=== PATIENT | male | born 1945 | race Caucasian/White ===

== ENCOUNTER 2022-09-30 13:12 | Emergency (ER) | payer MEDICARE, BC ==
[~2022-09-30] VITALS: Ht 182.9 cm; Wt 76.2 kg
[2022-09-30] MEDS ORDERED: IV NORMAL SALINE 500 ML BAG IV ONE ×2 (13:45→16:15)
--- NOTE | 2022-09-30 14:15 | NUR ---
Ice pack to lower back on. Position changes done.
[2022-09-30 14:34] LABS: HEMATOCRIT 37.2 % (36.7-47.1); MEAN CORPUSCULAR HEMOGLOBIN 29.3 uug (23.8-33.4); MEAN CORPUSCULAR VOLUME 90.3 fL (73.0-96.2); PLATELET COUNT (AUTO) 393 K/uL (152-348)
[2022-09-30 14:47] LABS: CREATININE 1.3 mg/dL (0.6-1.3); POTASSIUM 3.2 mmol/L (3.5-5.1)
[2022-09-30 14:53] LABS: BILIRUBIN,DIRECT 0.1 mg/dL (0.0-0.2); BILIRUBIN,TOTAL 0.3 mg/dL (0.2-1.0); TOTAL PROTEIN, SERUM 7.4 g/dL (6.4-8.2)
--- NOTE | 2022-09-30 16:41 | NUR ---
Patient is for discharged back to assisted group home. Written and verbal after care instructions given to patient's spouse and RN Suhail of [facility] [address] [place] [address]. Patient's spouse and private group home nurse verbalized understanding and compliance of instructions. Stressed follow up with primary doctor or return to ER for worsening s/s. Copies of all the tests' results will go with the patient. BLS ambulance of [facility] [id number].
--- NOTE | 2022-09-30 17:29 | NUR ---
Back rubs done, new ice pack to back per patient's request. Frequent water given.
--- NOTE | 2022-09-30 18:26 | NUR ---
Leena-anal care done. New diaper on. Urinal offered, pending [facility] ambulance arrival at this time.
--- NOTE | 2022-09-30 19:05 | NUR ---
IV removed. Catheter intact and site benign. Pressure and 4x4 gauze applied to site. No bleeding noted.
--- NOTE | 2022-09-30 19:11 | NUR ---
SBAR given to Paddy Copeland of unit#[id number] ([facility]).
--- NOTE | 2022-09-30 19:15 | NUR ---
Patient discharged in stable condition via [facility] ambulance. Written and verbal after care instructions given. Patient verbalizes understanding of instructions. Stressed follow up or return to ER for worsening s/s.
[2022-09-30 19:23] VITALS: BP 110/62
== END 2022-09-30 19:15 ==
LOC: ER 13:12
DX: S09.90XA Unspecified injury of head, initial encounter (principal); S51.812A Laceration without foreign body of left forearm, initial encounter; W05.0XXA Fall from non-moving wheelchair, initial encounter; Y92.129 Unspecified place in nursing home as the place of occurrence of the external cause; E86.0 Dehydration; I69.392 Facial weakness following cerebral infarction; I69.354 Hemiplegia and hemiparesis following cerebral infarction affecting left non-dominant side; I48.91 Unspecified atrial fibrillation; Z79.01 Long term (current) use of anticoagulants; J44.9 Chronic obstructive pulmonary disease, unspecified; E03.9 Hypothyroidism, unspecified; I69.398 Other sequelae of cerebral infarction; G93.89 Other specified disorders of brain
CPT/HCPCS: 99284; 70450; 80076; 80048; 85025; 36415; 93005; 73090; 72125; J7040; A4663